=== PATIENT | female | born 1990 | race Caucasian/White ===

== ENCOUNTER 2017-12-25 16:39 | Emergency (ER) | payer OTHER ==
[2017-12-25 17:14] LABS: APPEARANCE CLEAR (CLEAR); BILIRUBIN NEGATIVE (NEGATIVE); COLOR YELLOW (YELLOW); GLUCOSE NEGATIVE (NEGATIVE); KETONE NEGATIVE (NEGATIVE); NITRITE NEGATIVE (NEGATIVE); PROTEIN NEGATIVE (NEGATIVE); UROBILINOGEN NORMAL (NORMAL)
[2017-12-25 17:15] LABS: BACTERIA FEW /hpf (NONE SEEN); EPITHELIAL CELLS 0-5 /hpf (0-5); RED CELLS - URINE OCC /hpf (0-5); WHITE CELLS - URINE OCC /hpf (0-5)
== END 2017-12-25 19:34 | disposition home or self-care (01) ==
LOC: D.ER 16:39
PROVIDERS: Family Medicine
DX: R10.9 Unspecified abdominal pain (principal)

== ENCOUNTER 2017-12-25 19:42 | Emergency (ER) | payer OTHER | END 2017-12-25 22:29 | disposition home or self-care (01) | LOC: D.ER 19:42 | DX: M62.830 Muscle spasm of back (principal); F17.200 Nicotine dependence, unspecified, uncomplicated ==

== ENCOUNTER 2018-07-29 09:44 | Emergency (ER) | payer OTHER ==
[~2018-07-29] VITALS: Ht 167.6 cm; Wt 75.0 kg
[2018-07-29 09:50] VITALS: Ht 167.6 cm; Wt 75.0 kg
[2018-07-29] MEDS ORDERED: ZPAK PO (10:53)
[2018-07-29] MEDS ORDERED: PSEUDO-GEST60 MG PO (10:53)
[2018-07-29 11:28] VITALS: BP 115/75
== END 2018-07-29 11:28 | disposition home or self-care (01) ==
LOC: D.ER 09:44
DX: R51 Headache (principal); F17.200 Nicotine dependence, unspecified, uncomplicated